=== PATIENT | male | born 1985 | race Caucasian/White ===

== ENCOUNTER 2025-08-25 10:31 | Emergency (ER) | payer BC ==
[2025-08-25] MEDS: EPINEPHrine 1 MG/ML SDV IM ONE ×2 (10:54→11:57)
[2025-08-25] MEDS: diphenhydrAMINE 50 MG/ML SDV IVPUSH ONE (11:14)
[2025-08-25] MEDS: methylPREDNISolone Sodium Succinate 125 MG/2 ML SDV IVPUSH ONE (11:14)
[2025-08-25 11:17] LABS: BASOPHILS ABSOLUTE AUTO 0.06 K/uL (0.00-0.20); BASOPHILS PERCENT AUTO 0.5 % (0.0-1.0); EOSINOPHILS ABSOLUTE AUTO 0.55 K/uL (0.00-0.45); EOSINOPHILS PERCENT AUTO 4.2 % (0.0-6.0); IMMATURE GRAN ABSOLUTE AUTO 0.04 K/uL (0.00-0.05); IMMATURE GRAN PERCENT AUTO 0.3 % (0.0-0.4); LYMPHOCYTES ABSOLUTE AUTO 3.16 K/uL (1.00-4.80); LYMPHOCYTES PERCENT AUTO 24.1 % (24.0-44.0); MEAN PLATELET VOLUME 9.7 fL (9.4-12.4); MONOCYTES ABSOLUTE AUTO 0.87 K/uL (0.00-0.80); MONOCYTES PERCENT AUTO 6.6 % (0.0-8.0); NEUTROPHILS ABSOLUTE AUTO 8.45 K/uL (1.80-7.70); NEUTROPHILS PERCENT AUTO 64.3 % (41.0-71.0); NRBC ABSOLUTE 0.00 K/uL (0.00-0.02); NRBC PERCENT 0.0 /100WBC (0.0-0.2); PLATELET COUNT,PLT 248 K/uL (150-400); RED BLOOD CELL COUNT 5.65 M/uL (4.52-5.90); WHITE BLOOD CELL COUNT,WBC 13.13 K/uL (3.9-11.3)
[2025-08-25 11:44] LABS: A/G RATIO 0.7 (0.9-1.6); ALANINE AMINOTRANSFERASE,ALT 42.0 IU/L (14-63); ASPARTATE AMNIOTRANSFERASE,AST 35.0 IU/L (15-37); BILIRUBIN TOTAL 1.0 mg/dL (0.2-1.0); BLOOD UREA NITROGEN,BUN 18.0 mg/dL (7.0-18.0); CARBON DIOXIDE,CO2 30.9 mmol/L (21.0-32.0); CHLORIDE,CL 107.0 mmol/L (98-107); CREATININE 1.0 mg/dL (0.8-1.3); EST CRCL DRUG DOSING (CG) 87.13 mL/min; GLUCOSE RANDOM 90.0 mg/dL (74-106); POTASSIUM,K 4.2 mmol/L (3.5-5.1); PROTEIN TOTAL,TP 6.1 g/dL (6.4-8.2); SODIUM,NA 143.0 mmol/L (136-148)
[2025-08-25 11:46] LABS: ESTIMATED GFR 99.0 mL/min (>60)
[2025-08-25] MEDS: Iopamidol 755 MG/ML 500 ML Multipack Bottle IVPUSH STA (12:42)
== END 2025-08-25 15:29 | disposition left against medical advice (07) ==
LOC: MW.ED 10:31
DX: I10 Essential (primary) hypertension (principal); Z53.20 Procedure and treatment not carried out because of patient's decision for unspecified reasons; T78.40XA Allergy, unspecified, initial encounter; Z75.3 Unavailability and inaccessibility of health-care facilities; Z79.899 Other long term (current) drug therapy
CPT/HCPCS: 36415; 70491; 71045; 71260; 80053; 83880; 85025; 96361; 96372; 96374; 96375; 99284; J0169; J1200; J1308; J2919; J7030; Q9967